=== PATIENT | female | born 2000 | race Two or more races ===

== ENCOUNTER 2024-07-28 14:19 | Emergency (ER) | payer MEDICAID, SELFPAY ==
[2024-07-28 14:21] VITALS: BMI 25.2
[2024-07-28 14:25] VITALS: BP 116/75; PULSE 72; RESP 16; TEMP 36.8; O2SAT 98
--- NOTE | 2024-07-28 15:50 | XR_ITS ---
Examination: Complete OB ultrasound greater than 14 weeks Date and time of exam: July 28, 2024 1612 hrs. Indications: Leaking amniotic fluid today Findings: Viable intrauterine single fetus with single amniotic sac presentation breech spine maternal right Cardiac motion 148 BPM Placenta anterior grade 1 Umbilical cord insertion seen Amniotic fluid index 7.9 cm Cervix 4.6 cm Right ovary 2.5 x 1.8 x 1.9 cm arterial flow Left ovary 3.2 x 2.1 x 3.1 cm arterial flow. Composite estimated gestational age based on BPD, head circumference, abdominal circumference, femur length is 19 weeks 2 days Estimated weight 285.9 g. Survey of intracranial anatomy, spinal anatomy, abdominal anatomy, four-chamber heart performed with no abnormalities identified. Impression: Viable intrauterine gestation 19 weeks 2 days Amniotic fluid index 7.9 cm.
[2024-07-28 17:17] LABS: ROM Kit Lot # 57804194; ROM Swab Mixed By: SPAUA; Rupture of Fetal Membranes Negative (Negative); Swb Mxed in Solvent 1 min? Yes
--- NOTE | 2024-07-28 17:49 | PD.EDFMALE ---
ED Female Urogenital RME/HPI General Chief complaint: Urogenital-Female Stated complaint: 18 WEEKS PREG, SUDDEN LOSS FLUIDS TODAY Time Seen by Provider: 07/28/24 15:07 Source: patient Arrival date/time: 07/28/24 14:19 This is a 23-year-old female who is approximately 19 weeks of gestation who presents to the emergency department when she felt a gush vaginal discharge while shopping. Patient reports no abdominal pain no cramping, no dysuria hematuria. + movement. no other concerns. Mode of arrival: ambulatory Related Data Previous Rx's ?Medication ?Instructions ?Recorded metoclopramide HCl 10 mg tablet 10 mg PO Q6H PRN nausea and 04/24/24 (Reglan) vomiting #30 tabs Allergies Allergy/AdvReac Type Severity Reaction Status Date / Time No Known Allergies Allergy Verified 07/28/24 14:23 Review of Systems Review of Systems Systems Reviewed: All systems reviewed, normal except as documented Narrative Review of Systems: Gen: No fever, no chills, no weight loss EYES: No discharge, no visual changes, no pain HEENT: No ear pain, no congestion, no sore throat PULM: No shortness of breath, no cough, no congestion CV: No chest pain, no dyspnea on exertion, no palpitations GI: No nausea, no vomiting, no diarrhea, no pain, no constipation : No frequency, no urgency,? no dysuria, + vaginal discharge Musc/skel: No joint pain, no back pain Skin: No rash? ED Exam Narrative Physical exam: General: Sittiing in Exam table in no acute distress, answering questions appropriately HENT: normocephalic, atraumatic, EOMI, PERRLA, moist mucous membranes Chest: chest wall is nontender Cardiac: regular rate and rhythm, normal S1 and S2, no murmurs, rubs, or gallops, capillary refill ?2 seconds Pulmonary: clear to auscultation bilaterally, no wheezing, crackles, or rhonchi Abdominal: active bowel sounds, soft, , large habitus of gestational Neuro: A&OX3, CN II-XII intact, sensation grossly intact bilaterally in UE and LE. Skin: no rashes, no ecchymosis Ext: no lower extremity edema Course Quality Measures none Orders Category Date Time Status US OB >= 14 weeks Fetus Stat Exams 07/28/24 15:50 Completed ROM [Rupture of Membranes] Stat Lab 07/28/24 16:59 Completed Vital Signs Vital signs: Vital Signs Temperature 98.3 F 07/28/24 14:25 Pulse Rate 72 07/28/24 14:25 Respiratory Rate 16 07/28/24 14:25 Blood Pressure 116/75 07/28/24 14:25 Pulse Oximetry (%) 98 07/28/24 14:25 Oxygen Delivery Method Room Air 07/28/24 14:25 Urogenital - Female MDM Narrative MDM Narrative:: 23-year-old female, 19 weeks gestation presents to the emergency department with concerns of vaginal discharge. She was worried that it might be her amniotic fluid. A AmniSure test was completed in the ED and was negative for amniotic fluid. The ultrasound confirmed a viable 19 weeks 2-day fetus normal heart rate. Advised patient that during there might be increased vaginal discharge which can be in normal variant. Advised patient to make a follow-up appointment with her LOSS CONTROL MANAGER in 2 days for follow-up care. Strict ER precautions given. Patient data External records reviewed:: [facility] previous records Clinical information provided by:: patient Social determinants that could affect healthcare access:: none Patient has the following chronic illnesses:: None How is presenting disease/condition affected by chronic disease/condition?: no chronic disease Evaluation data The following diagnostics were reviewed and interpreted by me:: radiology exam(s) Lab and/or radiology exams considered but not ordered:: Yes it was considered Interpretation Summary: Examination: Complete OB ultrasound greater than 14 weeks Date and time of exam: July 28, 2024 1612 hrs. Indications: Leaking amniotic fluid today Findings: Viable intrauterine single fetus with single amniotic sac presentation breech spine maternal right Cardiac motion 148 BPM Placenta anterior grade 1 Umbilical cord insertion seen Amniotic fluid index 7.9 cm Cervix 4.6 cm Right ovary 2.5 x 1.8 x 1.9 cm arterial flow Left ovary 3.2 x 2.1 x 3.1 cm arterial flow. Composite estimated gestational age based on BPD, head circumference, abdominal circumference, femur length is 19 weeks 2 days Estimated weight 285.9 g. Survey of intracranial anatomy, spinal anatomy, abdominal anatomy, four-chamber heart performed with no abnormalities identified. Impression: Viable intrauterine gestation 19 weeks 2 days Amniotic fluid index 7.9 cm. Medications / Prescriptions Medications or Prescriptions considered but not ordered:: None Medication administrations:: None Consultations Consultation(s) initiated? (list below): No Diagnosis Urogenital Female Differential Diagnosis: ruptured ovarian cyst, cystitis and other Most likely diagnosis given after review of the tests above:: Vaginal Discharge during Admission Indicated Admission indicated?: not indicated Explain why admission is indicated or not indicated:: None Admission Request Was there a request for admission?: No Disposition Plan Disposition Plan: Discharge Discharge Attestation Discharge Attestation: The patient and all family members were given an opportunity to ask questions and understood the discharge instructions. Discharge instructions specifically effects, indications for sooner follow up or return to the emergency department, and the expected course of current diagnosis. Patient condition: Stable Discharge Plan Plan Patient Disposition: HOME (Self Care) Patient condition on transfer: Stable Prescriptions/Referrals Prescriptions/Med Rec: No Action metoclopramide HCl [Reglan] 10 mg tablet 10 mg PO Q6H PRN (Reason: nausea and vomiting) Qty: 30 0RF Referrals: Abad Mathews MD [Primary Care Provider] - In 1 week Problem List Clinical Impression: Vaginal discharge during Patient/Caregiver Discharge Instructions Discharge Activity: activity as tolerated Additional Instructions: - Your amniotic test today was negative. Your ultrasound demonstrates a 19-week -My recommendations is to follow-up with your LOSS CONTROL MANAGER to repeat the amniotic test fluid in 2 days. reTurn to the emergency department with any worsening symptoms change in condition. Print Language: Spanish Stand Alone Forms: Anat Santana Info., Patient Portal Info Letter ZOË/MARYANN Supervising Physician ZOË/MARYANN Supervising Physician: Dr Rico
== END 2024-07-28 18:15 | disposition home or self-care (01) ==
PROVIDERS: Nurse Practitioner Primary Care; Emergency Provider Emergency Medicine; PCP Family Medicine
DX: O26.892 Other specified pregnancy related conditions, second trimester (principal); N89.8 Other specified noninflammatory disorders of vagina; Z3A.19 19 weeks gestation of pregnancy
CPT/HCPCS: 76805; 84112; 99284